=== PATIENT | female | born 1995 | race Two or more races ===

== ENCOUNTER 2021-08-14 04:20 | Inpatient (IN) | payer BC ==
[2021-08-14] MEDS ORDERED: Sodium Chloride 0.9% 2.5 ML Syringe FLUSH PRN ×2 (04:34→12:07)
[2021-08-14] MEDS ORDERED: Butorphanol 1 MG/ML SDV IVPUSH PRN (04:34)
[2021-08-14] MEDS ORDERED: Sodium Chloride 0.9% 20 ML SDV IV PRN (04:34)
[2021-08-14] MEDS ORDERED: Misoprostol 200 MCG Tab PO PRN (04:34)
[2021-08-14] MEDS ORDERED: Methylergonovine 0.2 MG/1 ML Amp IM PRN (04:34)
[2021-08-14] MEDS ORDERED: Carboprost Tromethamine 250 MCG/1 ML Amp IM PRN (04:34)
[2021-08-14] MEDS ORDERED: Sodium Chloride 0.9% 10 ML Syringe FLUSH PRN ×2 (04:34→12:07)
[2021-08-14] MEDS ORDERED: Nalbuphine 10 MG/1 ML Vial IVPUSH PRN ×2 (04:34→07:54)
[2021-08-14] MEDS ORDERED: Ondansetron 4 MG/2 ML SDV IVPUSH PRN ×3 (04:34→07:54)
[2021-08-14] MEDS ORDERED: Lidocaine 1% 50 ML MDV INJECT PRN (04:34)
[2021-08-14] MEDS ORDERED: Tranexamic Acid 1,000 MG in Sodium Chloride 0.9% 100 ML IV PRN (04:34)
[2021-08-14] MEDS ORDERED: Water For Irrigation,Sterile 1,000 ML Container IRR PRN (04:34)
[2021-08-14] MEDS ORDERED: Terbutaline 1 MG/ML SDV SUBCUT PRN (04:34)
[2021-08-14] MEDS ORDERED: Oxytocin/0.9 % Sodium Chloride 30 UNIT/500 ML BAG IV SCH ×2 (04:45)
[2021-08-14] MEDS ORDERED: Ampicillin 2 GM in Sodium Chloride 0.9% 100 ML IV ONE (05:00)
[2021-08-14] MEDS ORDERED: Ampicillin 2 GM Vial ONE (05:21)
[2021-08-14] MEDS ORDERED: Sodium Chloride 0.9% 100 ML ONE (05:21)
[2021-08-14] MEDS: Lactated Ringers 1,000 ML IV SCH ×4 (05:30→23:41)
[2021-08-14] MEDS ORDERED: Misoprostol 25 MCG (1/4 of 100 MCG) Tab VAG PRN (05:30)
--- NOTE | 2021-08-14 06:59 | HP ---
DATE OF : 1995 PRIMARY CARE PHYSICIAN: None PCP CHIEF COMPLAINT: Rupture of membranes. HISTORY: This is a 26-year-old female, she is G1, P0. She presents at 37 weeks gestation, spontaneous rupture of membranes at 1 a.m., having clear fluid. No contractions. Good movement. Category 1 heart tone upon admission. She has received her coronavirus disease vaccine. She has had care with Dr. Good She is known to be breech previously and this was discussed in the clinic. She has had urinary tract infections during the . History of depression, not currently taking medication. However, [place]. Her support system is her [id number]. There has been a marginal cord insertion identified and she has been followed with growth ultrasounds, which have been normal. She has been taking Macrobid for suppression of recurrent urinary tract infections. She is also at an increased risk for preeclampsia, although has not developed preeclampsia. She has been on aspirin for prophylaxis. She is blood type A positive, rubella immune. PAST MEDICAL HISTORY: Significant for depression and anxiety. PAST SURGICAL HISTORY: Cholecystectomy. ALLERGIES: Seasonal allergies that exacerbate mild asthma. SOCIAL HISTORY: She is to her , Vamsi, who is deployed in [facility]. She denies use of tobacco, alcohol, or street drugs. 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 She has received her flu immunization for this season as well as her coronavirus disease immunization. FAMILY HISTORY: She has a family history of trigeminal neuralgia in her mother. Breast cancer in her maternal grandmother. Diabetes in her paternal grandfather and paternal grandmother. 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 Pap smears have been normal. Last Pap 01/27/2021. Menstrual formula 16 x 30 x 5-6. She denies any history of sexually transmitted infections. REVIEW OF SYSTEMS: Negative for headache, visual changes, cough, shortness of breath, chest pain, dyspnea on exertion, palpitations, nausea, vomiting, diarrhea, rash, arthralgia, or other symptoms. PHYSICAL EXAMINATION: VITAL SIGNS: Blood pressure 126/70, pulse is 70, heart tones are 130, moderate variability with accelerations present. Contractions are none. GENERAL: She is alert and oriented, no acute distress. NECK: Supple without lymphadenopathy or thyromegaly. LUNGS: Clear bilaterally. CARDIOVASCULAR: Regular rate and rhythm without murmur. ABDOMEN: Soft, gravid, nontender. Fundus is not tender. No rebound. No guarding. EXTREMITIES: Trace edema. VAGINAL: Performed on initial assessment by nurse is closed and thick with no presenting part. Ultrasound confirms breech presentation. ASSESSMENT AND PLAN: 37 weeks intrauterine , marginal cord insertion, history of recurrent urinary tract infections, group B Strep positive, breech presentation, premature rupture of membranes. PLAN: Admit for after discussion of risks and benefits. I explained that I do not recommend attempting external cephalic version after rupture of membranes due to potential for cord accident. Additionally, fluid has decreased subjectively on ultrasound. Therefore, I recommend proceeding with a delivery. She does agree with this. Risks were discussed including bleeding; infection; injury to bowel, bladder, blood vessels, ureters, other organs; risk of thromboembolic event; risk of anesthesia. Understanding all these risks, she does desire to proceed. After discussion with the chip tuner regarding his recommendation for group B strep prophylaxis, he preferred that if the fetus is stable and the mother is stable, there is no emergent need for the , to wait for second dose of ampicillin, so that the baby is fully treated prior to delivery for prophylaxis for group B Strep. The patient is in agreement with that and is scheduled for approximately 10 a.m. with first dose completed at approximately 6 a.m. KRISTA CEJA /[id number] RA
[2021-08-14] MEDS ORDERED: Metoclopramide 10 MG/2 ML SDV IVPUSH PRN (07:54)
[2021-08-14] MEDS ORDERED: diphenhydrAMINE 50 MG/ML SDV IVPUSH PRN (07:54)
[2021-08-14] MEDS ORDERED: Morphine 2 MG/ML SYRINGE IVPUSH PRN (07:54)
[2021-08-14] MEDS ORDERED: Naloxone 0.4 MG/ML SDV IVPUSH PRN (07:54)
[2021-08-14] MEDS ORDERED: Acetaminophen/oxyCODONE 325-5 MG Tab PO PRN ×2 (07:54→12:07)
[2021-08-14] MEDS ORDERED: HYDROmorphone 1 MG/ML Syringe IVPUSH PRN (07:54)
[2021-08-14] MEDS ORDERED: fentaNYL 100 MCG/2 ML SDV IVPUSH PRN ×2 (07:54)
[2021-08-14] MEDS ORDERED: Albuterol 0.083% 2.5 MG/3 ML Neb Soln NEB PRN (07:54)
--- NOTE | 2021-08-14 08:01 | PCM.PREANE ---
Preanesthetic Assessment - Review of Systems General: No Symptoms Pulmonary: No Symptoms Cardiovascular: No Symptoms Gastrointestinal: No Symptoms Neurological: No Symptoms Other: Reports: None - Physical Assessment NPO Status Date: 08/14/21 NPO Status Time: 00:00 Height: 5 ft 2 in Weight: 200 lb ASA Class: 2 Mental Status: Alert & Oriented x3 Airway Class: Mallampati = 2 Dentition: Reports: Normal Dentition Thyro-Mental Finger Breadths: 3 Mouth Opening Finger Breadths: 3 ROM/Head Extension: Full Lungs: Clear to Auscultation, Normal Respiratory Effort Cardiovascular: Regular Rate, Regular Rhythm - Lab Values: Laboratory Last Values WBC 11.44 K/uL (4.0-11.0) H 08/14/21 07:17 RBC 4.64 M/uL (4.30-5.90) 08/14/21 07:17 Hgb 12.9 g/dL (12.0-16.0) 08/14/21 07:17 Hct 38.7 % (36.0-46.0) 08/14/21 07:17 MCV 83.4 fL (80.0-98.0) 08/14/21 07:17 MCH 27.8 pg (27.0-32.0) 08/14/21 07:17 MCHC 33.3 g/dL (31.0-37.0) 08/14/21 07:17 RDW Std Deviation 44.2 fl (28.0-62.0) 08/14/21 07:17 RDW Coeff of Ton 15 % (11.0-15.0) 08/14/21 07:17 Plt Count 254 K/uL (150-400) 08/14/21 07:17 MPV 9.90 fL (7.40-12.00) 08/14/21 07:17 Nucleated RBC % 0.0 /100WBC 08/14/21 07:17 Nucleated RBCs # 0 K/uL 08/14/21 07:17 Membrane Rupture POSITIVE 08/14/21 03:52 SARS-CoV-2 RNA (DIRK) NEGATIVE (NEGATIVE) 08/14/21 05:15 Blood Type A POSITIVE 08/14/21 05:15 Antibody Screen NEGATIVE 08/14/21 05:15 - Allergies Allergies/Adverse Reactions: Allergies Allergy/AdvReac Type Severity Reaction Status Date / Time No Known Allergies Allergy Verified 08/14/21 04:24 - Acknowledgements Anesthesia Type Planned: Spinal Pt an Appropriate Candidate for the Planned Anesthesia: Yes Alternatives and Risks of Anesthesia Discussed w Pt/Guardian: Yes Pt/Guardian Understands and Agrees with Anesthesia Plan: Yes PreAnesthesia Questionnaire HEENT History: Reports: Other (See Below) Other HEENT History: seasonal allergies Cardiovascular History: Reports: None Respiratory History: Reports: Asthma Gastrointestinal History: Reports: None Genitourinary History: Reports: UTI, Recurrent, Other (See Below) Other Genitourinary History: was on Macrobid prophylactic CRAP SHOOTER History: Reports: Musculoskeletal History: Reports: None Neurological History: Reports: None Psychiatric History: Reports: Anxiety, Depression Hematologic History: Reports: None Immunologic History: Reports: None Oncologic (Cancer) History: Reports: None Dermatologic History: Reports: None - Past Surgical History Head Surgeries/Procedures: Reports: None Respiratory Surgical History: Reports: None Musculoskeletal Surgical History: Reports: None - HOME MEDS Home Medications: Home Meds Cetirizine [ZyrTEC] 1 tab PO DAILY 04/28/21 [History] Pnv No.95/Ferrous Fum/Folic AC [ Tablet] 1 tab PO BEDTIME 04/28/21 [History] nitrofurantoin macrocrystaL [Nitrofurantoin] 1 cap PO BID 04/28/21 [History] - CURRENT (IN HOUSE) MEDS Current Meds: Current Medications Albuterol (Albuterol 0.083% 2.5 Mg/3 Ml Neb Soln) 2.5 mg NEB ONETIME PRN PRN Reason: Wheezing Butorphanol Tartrate (Butorphanol 1 Mg/Ml Sdv) 1 mg IVPUSH Q1H PRN PRN Reason: Pain (severe 7-10) Carboprost Tromethamine (Carboprost Tromethamine 250 Mcg/1 Ml Amp) 250 mcg IM ASDIRECTED PRN PRN Reason: Post Hemorrhage Diphenhydramine HCl (Diphenhydramine 50 Mg/Ml Sdv) 12.5 mg IVPUSH Q2H PRN PRN Reason: Itching Droperidol (Droperidol 5 Mg/2 Ml Sdv) 0.625 mg IVPUSH ONETIME PRN PRN Reason: Nausea/Vomiting Fentanyl (Fentanyl 100 Mcg/2 Ml Sdv) 50 mcg IVPUSH Q5M PRN PRN Reason: Pain (mild 1-3) Fentanyl (Fentanyl 100 Mcg/2 Ml Sdv) 50 mcg IVPUSH Q15M PRN PRN Reason: Pain (severe 7-10) Hydromorphone HCl (Hydromorphone 1 Mg/Ml Syringe) 1 mg IVPUSH Q10M PRN PRN Reason: Pain (moderate 4-6) Lactated Ringer's (Ringers, Lactated) 1,000 mls @ 150 mls/hr IV ASDIRECTED [facility] Last Admin: 08/14/21 05:30 Dose: 150 mls/hr Documented by: Oxytocin/Sodium Chloride (Oxytocin 30 Unit In Ns 0.9% 500 Ml Premix) 30 unit in 500 mls @ 999 mls/hr IV TITRATE [facility] Tranexamic Acid 1,000 mg/ (Sodium Chloride) 110 mls @ 660 mls/hr IV ONETIME PRN PRN Reason: Bleeding Oxytocin/Sodium Chloride (Oxytocin 30 Unit In Ns 0.9% 500 Ml Premix) 30 unit in 500 mls @ 2 mls/hr IV TITRATE [facility]; Protocol Ampicillin Sodium 1 gm/ Sodium (Chloride) 50 mls @ 100 mls/hr IV Q4H [facility] Lidocaine HCl (Lidocaine 1% 50 Ml Mdv) 50 ml INJECT ONETIME PRN PRN Reason: Laceration repair Methylergonovine Maleate (Methylergonovine 0.2 Mg/1 Ml Amp) 0.2 mg IM ASDIRECTED PRN PRN Reason: Post Hemorrhage Metoclopramide HCl (Metoclopramide 10 Mg/2 Ml Sdv) 10 mg IVPUSH ONETIME PRN PRN Reason: Nausea/Vomiting Misoprostol (Misoprostol 200 Mcg Tab) 200 mcg PO ONETIME PRN PRN Reason: Post Hemorrhage Misoprostol (Misoprostol 25 Mcg (1/4 Of 100 Mcg) Tab) 25 mcg VAG Q4H PRN PRN Reason: Cervical Ripening Morphine Sulfate (Morphine 4 Mg/Ml Vial) 2 mg IVPUSH Q10M PRN PRN Reason: Pain (severe 7-10) Nalbuphine HCl (Nalbuphine 10 Mg/1 Ml Vial) 10 mg IVPUSH Q1H PRN PRN Reason: Pain (severe 7-10) Nalbuphine HCl (Nalbuphine 10 Mg/1 Ml Vial) 5 mg IVPUSH Q30M PRN PRN Reason: Itching Naloxone HCl (Naloxone 0.4 Mg/Ml Sdv) 0.1 mg IVPUSH ASDIRECTED PRN PRN Reason: Respiratory Depression Ondansetron HCl (Ondansetron 4 Mg/2 Ml Sdv) 4 mg IVPUSH Q6H PRN PRN Reason: Nausea/Vomiting Ondansetron HCl (Ondansetron 4 Mg/2 Ml Sdv) 4 mg IVPUSH ONETIME PRN PRN Reason: Nausea/Vomiting Ondansetron HCl (Ondansetron 4 Mg/2 Ml Sdv) 4 mg IVPUSH Q6H PRN PRN Reason: Nausea Oxycodone/Acetaminophen (Acetaminophen/Oxycodone 325-5 Mg Tab) 2 tab PO Q6H PRN PRN Reason: Pain (moderate 4-6) Sodium Chloride (Sodium Chloride 0.9% 10 Ml Syringe) 10 ml FLUSH ASDIRECTED PRN PRN Reason: Keep Vein Open Sodium Chloride (Sodium Chloride 0.9% 2.5 Ml Syringe) 2.5 ml FLUSH ASDIRECTED PRN PRN Reason: Keep Vein Open Sodium Chloride (Sodium Chloride 0.9% 20 Ml Sdv) 10 ml IV ASDIRECTED PRN PRN Reason: IV Use Sterile Water (Water For Irrigation,Sterile 1,000 Ml Container) 1,000 ml IRR ASDIRECTED PRN PRN Reason: delivery Terbutaline Sulfate (Terbutaline 1 Mg/Ml Sdv) 0.25 mg SUBCUT ASDIRECTED PRN PRN Reason: Tacysystole Discontinued Medications Ampicillin Sodium (Ampicillin 2 Gm Vial) Confirm Administered Dose 2 gm .ROUTE .STK-MED ONE Stop: 08/14/21 05:22 Last Admin: 08/14/21 05:32 Dose: 2 gm Documented by: Ampicillin Sodium 2 gm/ Sodium (Chloride) 100 mls @ 200 mls/hr IV ONETIME ONE Stop: 08/14/21 05:29 Sodium Chloride (Normal Saline Advbag) Confirm Administered Dose 100 mls @ as directed .ROUTE .STK-MED ONE Stop: 08/14/21 05:22 Last Admin: 08/14/21 05:32 Dose: 200 mls/hr Documented by:
[2021-08-14] MEDS ORDERED: Ropivacaine 0.5% 5 MG/ML 30 ML SDV ONE ×2 (08:51→08:54)
[2021-08-14] MEDS ORDERED: Morphine PF 10 MG/10 ML SDV ONE (08:54)
[2021-08-14] MEDS ORDERED: fentaNYL 100 MCG/2 ML SDV ONE (08:54)
[2021-08-14] MEDS ORDERED: Oxytocin 10 Units/1 ML SDV ONE (08:54)
[2021-08-14] MEDS ORDERED: Ondansetron 4 MG/2 ML SDV ONE (08:54)
[2021-08-14] MEDS ORDERED: Dexamethasone 4 MG/ML 5 ML MDV ONE (08:54)
[2021-08-14] MEDS ORDERED: Ampicillin 1 GM in Sodium Chloride 0.9% 50 ML IV SCH (09:00)
[2021-08-14] MEDS ORDERED: ceFAZolin 1 GM Vial ONE ×2 (10:18)
--- NOTE | 2021-08-14 11:33 | PCM.POSTAN ---
POST ANESTHESIA ASSESSMENT - MENTAL STATUS Mental Status: Alert, Oriented - RESPIRATORY Respiratory Status: Respiratory Rate WNL, Airway Patent, O2 Saturation Stable - CARDIOVASCULAR CV Status: Pulse Rate WNL, Blood Pressure Stable - GASTROINTESTINAL GI Status: No Symptoms - POST OP HYDRATION Hydration Status: Adequate & Stable
--- NOTE | 2021-08-14 11:34 | PCM48HPAN ---
Post Anesthesia Note - EVALUATION WITHIN 48HRS OF ANESTHETIC Vital Signs in Normal Range: Yes Patient Participated in Evaluation: Yes Respiratory Function Stable: Yes Airway Patent: Yes Cardiovascular Function Stable: Yes Hydration Status Stable: Yes Pain Control Satisfactory: Yes Nausea and Vomiting Control Satisfactory: Yes Mental Status Recovered: Yes
--- NOTE | 2021-08-14 11:37 | PCM.SN.2 ---
- Free Text/Narrative Note: Anesthesia Start: 1128 Anesthesia Stop: 1130 After obtaining informed consent, performing a block time out and under sterile conditions, UIS was used to place BILATERAL TAPS block for post op analgesia. Using a 6 inch, 21g stimuplex needle, 25 cc per side of 0.5% Naropin was injected. No complications. Patient tolerated the procedure well. Deyvi Powell MD
[2021-08-14] MEDS ORDERED: Misoprostol 200 MCG Tab RECTAL PRN (12:07)
[2021-08-14] MEDS ORDERED: Lanolin 100% Cream 7 GM Tube TOP PRN (12:07)
[2021-08-14] MEDS ORDERED: Bisacodyl 10 MG Supp RECTAL PRN (12:07)
--- NOTE | 2021-08-14 12:15 | PCM.OPNOTE ---
- General Post-Op/Procedure Note Date of Surgery/Procedure: 08/14/21 Operative Procedure(s): Primary low transverse section Findings: male infant in neli breech presentation, AGPAR 8 and 9. Wt 2650g Pre Op Diagnosis: 1. premature rupture of membranes. 2. breech presentation. 3. intrauterine growth restriction Post-Op Diagnosis: 1. premature rupture of membranes. 2. breech presentation. 3. intrauterine growth restriction Anesthesia Technique: Spinal Primary Surgeon: Collins Good Anesthesia Provider: Deyvi Powell Pathology: Placenta Fluid Replacement, Intraop: 1,500 Output, Urine Amount: 100 EBL in mLs: 400 Condition: Good Free Text/Narrative:: Intake & Output 08/13/21 08/14/21 08/14/21 22:59 06:59 14:59 Intake Total 1100 Balance 1100 Routine post care.
[2021-08-14] MEDS: Ketorolac 30 MG/ML SDV IVPUSH SCH ×2 (13:54→19:40)
[2021-08-14] MEDS: Docusate Sodium 100 MG Cap PO SCH (19:59)
--- NOTE | 2021-08-15 01:32 | OR ---
SURGEON: Collins Good MD DATE OF PROCEDURE: 08/14/2021 INDICATION FOR PROCEDURE: A 26-year-old, G1, P0, at 37 weeks and 0 days, presenting with premature rupture of membranes. The patient presented after noticing a large gush of clear fluid around 1:00 a.m. last night. She denies having contractions or bleeding. After arriving to Labor and Delivery, she was confirmed to be AmnioSure positive. Her cervix was closed. She is GBS positive, and was given ampicillin for GBS prophylaxis. The baby was in breech presentation. After discussion with the internet site designer regarding treatment for group B strep, was advised to give her two doses of ampicillin prior to proceeding with section, which she received. The was complicated by a marginal cord insertion. She was found to have intrauterine growth restriction on ultrasound two days ago with an abdominal circumference of 8th percentile. She had normal umbilical artery Dopplers. PREOPERATIVE DIAGNOSES: 1. Lorenzo intrauterine at 37 weeks and 0 days. 2. Premature rupture of membranes. 3. Group B Streptococcus positive. 4. Breech presentation. 5. Marginal cord insertion. 6. Intrauterine growth restriction. POSTOPERATIVE DIAGNOSES: 1. Lorenzo intrauterine at 37 weeks and 0 days. 2. Premature rupture of membranes. 3. Group B Streptococcus positive. 4. Breech presentation. 5. Marginal cord insertion. 6. Intrauterine growth restriction. PROCEDURE PERFORMED: Primary low-transverse section. ANESTHESIA: General anesthesia. ANESTHESIOLOGIST: Dr. Deyvi Powell. FINDINGS: Viable male infant, scores of 8 and 9. weight of 2650 g. The fetus was in complete breech presentation. ESTIMATED BLOOD LOSS: 400 mL. DESCRIPTION OF PROCEDURE: The procedure was discussed with the patient, the risks including bleeding, infection, DVTs, and injury to surrounding organs including bladder, bowel, ureter; the patient expressed understanding. Consent signed. The patient was brought to the operating room. She previously received ampicillin for GBS prophylaxis and an additional 2 g of Ancef IV. SCDs were placed. Spinal anesthesia was placed and a Claudio catheter was inserted. The abdomen was prepped with chlorhexidine in a sterile fashion and draped and tested for anesthesia. The spinal was adequate. A Pfannenstiel incision was made with a scalpel and dissected down to fascia. The fascia was cleared of subcutaneous tissue. The fascia was incised in the midline with scalpel and extended laterally with curved Lamb scissors. Zohaib clamps were placed on the superior fascial edge. The rectus muscles were by blunt dissection and using Lamb scissors. The same process was repeated for inferior fascial edge. The peritoneum was identified, cut with Metzenbaum scissors, and extended bluntly. The Keegan O retractor was placed in the peritoneal cavity. The bladder was noted to be away from the lower uterine segment. The uterus was incised at the lower uterine segment transversely using the scalpel and extended bluntly. Clear amniotic fluid was noted. The 's right leg was noted at the hysterotomy. The infant's hips were rotated anteriorly, and the hips and both legs were delivered through the hysterotomy. The infant's right arm was then delivered after rotating the shoulder anteriorly, and then the was rotated so that the other shoulder delivered. The was then elevated and the head delivered by flexing the chin. The umbilical cord was clamped and cut after 60 seconds and no longer pulsating. The baby was pink, moving all extremities, and crying immediately after delivery. The baby was brought over to the awaiting nursery staff. Cord gases were obtained. Placenta was removed with gentle traction and uterine massage. The uterine cavity was cleaned with a lap to remove all remaining membranes. Allis clamps were used to grasp the angles and lower edges of the incision. The uterine incision was closed in 2 layers, the first layer was running non-locking fashion using 0 Monocryl, and the second layer with vertical imbricated fashion. The uterus was firm, and the incision was hemostatic. Paracolic gutters were cleared of any clots. The incision was irrigated and hemostasis again confirmed. The peritoneum was brought together to the midline with hemostats and closed with 2-0 Vicryl in running fashion. Rectus muscles were reapproximated with 2-0 Vicryl with mattress stitches. The rectus muscle was carefully examined and found to be hemostatic. The fascia was closed using a 0 Vicryl suture in a running fashion. The subcutaneous tissue was irrigated and bleeding areas cauterized. The subcutaneous layer was brought together with 2-0 plain suture. The skin was closed in a subcuticular fashion using 3-0 Monocryl on a Baldomero needle. A Telfa ABD dressing was placed over the over the incision. The patient was stable and transferred to the recovery room. Postop instructions were reviewed with the patient. XANDER CEJA /[id number]
[2021-08-15] MEDS: Ketorolac 30 MG/ML SDV IVPUSH SCH ×3 (01:34→14:45)
[2021-08-15] MEDS: Docusate Sodium 100 MG Cap PO SCH ×2 (08:12→22:15)
--- NOTE | 2021-08-15 09:12 | PCM.PNPP ---
- General Info Date of Service: 08/15/21 Subjective Update: Patient doing well. Claudio removed this morning and has voided. Pain well controlled. Bottle feeding. Functional Status: Reports: Pain Controlled, Tolerating Diet, Ambulating, Urinating - Review of Systems General: Reports: No Symptoms HEENT: Reports: No Symptoms Pulmonary: Reports: No Symptoms Cardiovascular: Reports: No Symptoms Gastrointestinal: Reports: No Symptoms Genitourinary: Reports: No Symptoms Musculoskeletal: Reports: No Symptoms Skin: Reports: No Symptoms Neurological: Reports: No Symptoms Psychiatric: Reports: No Symptoms - Patient Data Vital Signs - Most Recent: Last Vital Signs Temp 36.4 C 08/15/21 08:00 Pulse 81 08/15/21 08:50 Resp 16 08/15/21 08:50 BP 103/49 L 08/15/21 08:00 Pulse Ox 99 08/15/21 08:50 Weight - Most Recent: 90.718 kg I&O - Last 24 Hours: Intake & Output 08/14/21 08/15/21 08/15/21 22:59 06:59 14:59 Intake Total 2375 Output Total 900 875 250 Balance -900 1500 -250 Lab Results - Last 24 Hours: Laboratory Results - last 24 hr 08/15/21 Range/Units 05:40 Hgb 11.0 L (12.0-16.0) g/dL Hct 33.0 L (36.0-46.0) % Med Orders - Current: Current Medications Albuterol (Albuterol 0.083% 2.5 Mg/3 Ml Neb Soln) 2.5 mg NEB ONETIME PRN PRN Reason: Wheezing Bisacodyl (Bisacodyl 10 Mg Supp) 10 mg RECTAL ONETIME PRN PRN Reason: Constipation Diphenhydramine HCl (Diphenhydramine 50 Mg/Ml Sdv) 12.5 mg IVPUSH Q2H PRN PRN Reason: Itching Docusate Sodium (Docusate Sodium 100 Mg Cap) 100 mg PO BID [facility] Last Admin: 08/15/21 08:12 Dose: 100 mg Documented by: Emollient Ointment (Lanolin 100% Cream 7 Gm Tube) 0 gm TOP ASDIRECTED PRN PRN Reason: Sore Nipples Fentanyl (Fentanyl 100 Mcg/2 Ml Sdv) 50 mcg IVPUSH Q5M PRN PRN Reason: Pain (mild 1-3) Fentanyl (Fentanyl 100 Mcg/2 Ml Sdv) 50 mcg IVPUSH Q15M PRN PRN Reason: Pain (severe 7-10) Hydromorphone HCl (Hydromorphone 1 Mg/Ml Syringe) 1 mg IVPUSH Q10M PRN PRN Reason: Pain (moderate 4-6) Lactated Ringer's (Ringers, Lactated) 1,000 mls @ 125 mls/hr IV ASDIRECTED [facility] Last Admin: 08/14/21 23:41 Dose: 125 mls/hr Documented by: Ibuprofen (Ibuprofen 800 Mg Tab) 800 mg PO Q8H PRN PRN Reason: Cramping Ketorolac Tromethamine (Ketorolac 30 Mg/Ml Sdv) 30 mg IVPUSH Q6H [facility] Stop: 08/15/21 12:16 Last Admin: 08/15/21 08:10 Dose: 30 mg Documented by: Metoclopramide HCl (Metoclopramide 10 Mg/2 Ml Sdv) 10 mg IVPUSH ONETIME PRN PRN Reason: Nausea/Vomiting Misoprostol (Misoprostol 200 Mcg Tab) 1,000 mcg RECTAL ONETIME PRN PRN Reason: excessive bleeding Morphine Sulfate (Morphine 2 Mg/Ml Syringe) 2 mg IVPUSH Q10M PRN PRN Reason: Pain (severe 7-10) Ondansetron HCl (Ondansetron 4 Mg/2 Ml Sdv) 4 mg IVPUSH ONETIME PRN PRN Reason: Nausea/Vomiting Ondansetron HCl (Ondansetron 4 Mg/2 Ml Sdv) 4 mg IVPUSH Q6H PRN PRN Reason: Nausea Last Admin: 08/14/21 16:16 Dose: 4 mg Documented by: Oxycodone/Acetaminophen (Acetaminophen/Oxycodone 325-5 Mg Tab) 2 tab PO Q6H PRN PRN Reason: Pain (moderate 4-6) Oxycodone/Acetaminophen (Acetaminophen/Oxycodone 325-5 Mg Tab) 1 tab PO Q4H PRN PRN Reason: Pain (severe 7-10) Sodium Chloride (Sodium Chloride 0.9% 10 Ml Syringe) 10 ml FLUSH ASDIRECTED PRN PRN Reason: Keep Vein Open Sodium Chloride (Sodium Chloride 0.9% 2.5 Ml Syringe) 2.5 ml FLUSH ASDIRECTED PRN PRN Reason: Keep Vein Open Sodium Chloride (Sodium Chloride 0.9% 20 Ml Sdv) 10 ml IV ASDIRECTED PRN PRN Reason: IV Use Sodium Chloride (Sodium Chloride 0.9% 10 Ml Syringe) 10 ml FLUSH ASDIRECTED PRN PRN Reason: Keep Vein Open Sodium Chloride (Sodium Chloride 0.9% 2.5 Ml Syringe) 2.5 ml FLUSH ASDIRECTED PRN PRN Reason: Keep Vein Open Discontinued Medications Ampicillin Sodium (Ampicillin 2 Gm Vial) Confirm Administered Dose 2 gm .ROUTE .STK-MED ONE Stop: 08/14/21 05:22 Last Admin: 08/14/21 05:32 Dose: 2 gm Documented by: Butorphanol Tartrate (Butorphanol 1 Mg/Ml Sdv) 1 mg IVPUSH Q1H PRN PRN Reason: Pain (severe 7-10) Carboprost Tromethamine (Carboprost Tromethamine 250 Mcg/1 Ml Amp) 250 mcg IM ASDIRECTED PRN PRN Reason: Post Hemorrhage Cefazolin Sodium (Cefazolin 1 Gm Vial) Confirm Administered Dose 1 gm .ROUTE .STK-MED ONE Stop: 08/14/21 10:19 Cefazolin Sodium (Cefazolin 1 Gm Vial) Confirm Administered Dose 1 gm .ROUTE .STK-MED ONE Stop: 08/14/21 10:19 Dexamethasone (Dexamethasone 4 Mg/Ml 5 Ml Mdv) Confirm Administered Dose 20 mg .ROUTE .STK-MED ONE Stop: 08/14/21 08:55 Droperidol (Droperidol 5 Mg/2 Ml Sdv) 0.625 mg IVPUSH ONETIME PRN PRN Reason: Nausea/Vomiting Fentanyl (Fentanyl 100 Mcg/2 Ml Sdv) Confirm Administered Dose 100 mcg .ROUTE .STK-MED ONE Stop: 08/14/21 08:55 Lactated Ringer's (Ringers, Lactated) 1,000 mls @ 150 mls/hr IV ASDIRECTED [facility] Last Admin: 08/14/21 08:49 Dose: 150 mls/hr Documented by: Oxytocin/Sodium Chloride (Oxytocin 30 Unit In Ns 0.9% 500 Ml Premix) 30 unit in 500 mls @ 999 mls/hr IV TITRATE [facility] Tranexamic Acid 1,000 mg/ (Sodium Chloride) 110 mls @ 660 mls/hr IV ONETIME PRN PRN Reason: Bleeding Oxytocin/Sodium Chloride (Oxytocin 30 Unit In Ns 0.9% 500 Ml Premix) 30 unit in 500 mls @ 2 mls/hr IV TITRATE [facility]; Protocol Ampicillin Sodium 2 gm/ Sodium (Chloride) 100 mls @ 200 mls/hr IV ONETIME ONE Stop: 08/14/21 05:29 Ampicillin Sodium 1 gm/ Sodium (Chloride) 50 mls @ 100 mls/hr IV Q4H [facility] Last Admin: 08/14/21 09:23 Dose: 100 mls/hr Documented by: Sodium Chloride (Normal Saline Advbag) Confirm Administered Dose 100 mls @ as directed .ROUTE .STK-MED ONE Stop: 08/14/21 05:22 Last Admin: 08/14/21 05:32 Dose: 200 mls/hr Documented by: Lidocaine HCl (Lidocaine 1% 50 Ml Mdv) 50 ml INJECT ONETIME PRN PRN Reason: Laceration repair Methylergonovine Maleate (Methylergonovine 0.2 Mg/1 Ml Amp) 0.2 mg IM ASDIRECTED PRN PRN Reason: Post Hemorrhage Miscellaneous Medication (Phenylephrine Hcl In 0.9% Nacl 1 Mg/10 Ml Syringe) Confirm Administered Dose 1 mg .ROUTE .STK-MED ONE Stop: 08/14/21 09:05 Miscellaneous Medication (Phenylephrine Hcl In 0.9% Nacl 1 Mg/10 Ml Syringe) Confirm Administered Dose 1 mg .ROUTE .STK-MED ONE Stop: 08/14/21 10:50 Misoprostol (Misoprostol 200 Mcg Tab) 200 mcg PO ONETIME PRN PRN Reason: Post Hemorrhage Misoprostol (Misoprostol 25 Mcg (1/4 Of 100 Mcg) Tab) 25 mcg VAG Q4H PRN PRN Reason: Cervical Ripening Morphine Sulfate (Morphine Pf 10 Mg/10 Ml Sdv) Confirm Administered Dose 10 mg .ROUTE .STK-MED ONE Stop: 08/14/21 08:55 Nalbuphine HCl (Nalbuphine 10 Mg/1 Ml Vial) 10 mg IVPUSH Q1H PRN PRN Reason: Pain (severe 7-10) Nalbuphine HCl (Nalbuphine 10 Mg/1 Ml Vial) 5 mg IVPUSH Q30M PRN PRN Reason: Itching Naloxone HCl (Naloxone 0.4 Mg/Ml Sdv) 0.1 mg IVPUSH ASDIRECTED PRN PRN Reason: Respiratory Depression Ondansetron HCl (Ondansetron 4 Mg/2 Ml Sdv) 4 mg IVPUSH Q6H PRN PRN Reason: Nausea/Vomiting Ondansetron HCl (Ondansetron 4 Mg/2 Ml Sdv) Confirm Administered Dose 4 mg .ROUTE .STK-MED ONE Stop: 08/14/21 08:55 Oxytocin (Oxytocin 10 Units/1 Ml Sdv) Confirm Administered Dose 30 unit .ROUTE .STK-MED ONE Stop: 08/14/21 08:55 Ropivacaine (Ropivacaine 0.5% 5 Mg/Ml 30 Ml Sdv) Confirm Administered Dose 30 ml .ROUTE .STK-MED ONE Stop: 08/14/21 08:52 Ropivacaine (Ropivacaine 0.5% 5 Mg/Ml 30 Ml Sdv) Confirm Administered Dose 30 ml .ROUTE .STK-MED ONE Stop: 08/14/21 08:55 Sterile Water (Water For Irrigation,Sterile 1,000 Ml Container) 1,000 ml IRR ASDIRECTED PRN PRN Reason: delivery Terbutaline Sulfate (Terbutaline 1 Mg/Ml Sdv) 0.25 mg SUBCUT ASDIRECTED PRN PRN Reason: Tacysystole - Interaction Infant Disposition, : in Room with Family Feeding: Bottle Fed Support Person: - Recovery Exam Fundal Tone: Firm Fundal Level: 1 Fingerbreadths Below Umbilicus Fundal Placement: Midline Lochia Amount: Scant Lochia Color: Rubra/Red Bladder Status: Voiding Urinary Elimination: Voided - Exam General: Alert, Oriented Neck: Supple Lungs: Normal Respiratory Effort GI/Abdominal Exam: Soft, Non-Tender, No Distention Extremities: Non-Tender, No Pedal Edema Skin: Warm Wound/Incisions: Dressing Dry and Intact Neurological: No New Focal Deficit Psy/Mental Status: Alert, Normal Affect, Normal Mood - Problem List & Annotations (1) Delivery by section for breech presentation SNOMED Code(s): 515928735 Code(s): O32.1XX0 - MATERNAL CARE FOR BREECH PRESENTATION, UNSP Status: Acute Current Visit: Yes - Problem List Review Problem List Initiated/Reviewed/Updated: Yes - Assessment Assessment:: 26yo s/p 1LTCS for breech presentation and rupture of membranes at 37w0d, POD#1 - Plan Plan:: Continue routine care. Encourage ambulation today. Rx sent to patient's pharmacy (closed tomorrow). Rh positive, GBS negative. Plan discharge home on POD#2.
[2021-08-15] MEDS ORDERED: Ketorolac 30 MG/ML SDV ONE (14:41)
[2021-08-15] MEDS ORDERED: Ibuprofen 800 MG Tab PO PRN (18:15)
--- NOTE | 2021-08-16 07:21 | PCM.PNPP ---
- General Info Date of Service: 08/16/21 Subjective Update: Patient doing well. Pain well controlled. Bottle feeding. Functional Status: Reports: Pain Controlled, Tolerating Diet, Ambulating, Urinating - Review of Systems General: Reports: No Symptoms HEENT: Reports: No Symptoms Pulmonary: Reports: No Symptoms Cardiovascular: Reports: No Symptoms Gastrointestinal: Reports: No Symptoms Genitourinary: Reports: No Symptoms Musculoskeletal: Reports: No Symptoms Skin: Reports: No Symptoms Neurological: Reports: No Symptoms Psychiatric: Reports: No Symptoms - Patient Data Vital Signs - Most Recent: Last Vital Signs Temp 36.9 C 08/16/21 04:10 Pulse 83 08/16/21 04:10 Resp 18 08/16/21 04:10 BP 126/67 08/16/21 04:10 Pulse Ox 95 08/16/21 04:10 Weight - Most Recent: 90.718 kg Med Orders - Current: Current Medications Albuterol (Albuterol 0.083% 2.5 Mg/3 Ml Neb Soln) 2.5 mg NEB ONETIME PRN PRN Reason: Wheezing Bisacodyl (Bisacodyl 10 Mg Supp) 10 mg RECTAL ONETIME PRN PRN Reason: Constipation Diphenhydramine HCl (Diphenhydramine 50 Mg/Ml Sdv) 12.5 mg IVPUSH Q2H PRN PRN Reason: Itching Docusate Sodium (Docusate Sodium 100 Mg Cap) 100 mg PO BID [facility] Last Admin: 08/15/21 22:15 Dose: 100 mg Documented by: Emollient Ointment (Lanolin 100% Cream 7 Gm Tube) 0 gm TOP ASDIRECTED PRN PRN Reason: Sore Nipples Fentanyl (Fentanyl 100 Mcg/2 Ml Sdv) 50 mcg IVPUSH Q5M PRN PRN Reason: Pain (mild 1-3) Fentanyl (Fentanyl 100 Mcg/2 Ml Sdv) 50 mcg IVPUSH Q15M PRN PRN Reason: Pain (severe 7-10) Hydromorphone HCl (Hydromorphone 1 Mg/Ml Syringe) 1 mg IVPUSH Q10M PRN PRN Reason: Pain (moderate 4-6) Lactated Ringer's (Ringers, Lactated) 1,000 mls @ 125 mls/hr IV ASDIRECTED [facility] Last Admin: 08/14/21 23:41 Dose: 125 mls/hr Documented by: Ibuprofen (Ibuprofen 800 Mg Tab) 800 mg PO Q8H PRN PRN Reason: Cramping Last Admin: 08/16/21 04:06 Dose: 800 mg Documented by: Metoclopramide HCl (Metoclopramide 10 Mg/2 Ml Sdv) 10 mg IVPUSH ONETIME PRN PRN Reason: Nausea/Vomiting Misoprostol (Misoprostol 200 Mcg Tab) 1,000 mcg RECTAL ONETIME PRN PRN Reason: excessive bleeding Morphine Sulfate (Morphine 2 Mg/Ml Syringe) 2 mg IVPUSH Q10M PRN PRN Reason: Pain (severe 7-10) Ondansetron HCl (Ondansetron 4 Mg/2 Ml Sdv) 4 mg IVPUSH ONETIME PRN PRN Reason: Nausea/Vomiting Ondansetron HCl (Ondansetron 4 Mg/2 Ml Sdv) 4 mg IVPUSH Q6H PRN PRN Reason: Nausea Last Admin: 08/14/21 16:16 Dose: 4 mg Documented by: Oxycodone/Acetaminophen (Acetaminophen/Oxycodone 325-5 Mg Tab) 2 tab PO Q6H PRN PRN Reason: Pain (moderate 4-6) Oxycodone/Acetaminophen (Acetaminophen/Oxycodone 325-5 Mg Tab) 1 tab PO Q4H PRN PRN Reason: Pain (severe 7-10) Sodium Chloride (Sodium Chloride 0.9% 10 Ml Syringe) 10 ml FLUSH ASDIRECTED PRN PRN Reason: Keep Vein Open Sodium Chloride (Sodium Chloride 0.9% 2.5 Ml Syringe) 2.5 ml FLUSH ASDIRECTED PRN PRN Reason: Keep Vein Open Sodium Chloride (Sodium Chloride 0.9% 20 Ml Sdv) 10 ml IV ASDIRECTED PRN PRN Reason: IV Use Sodium Chloride (Sodium Chloride 0.9% 10 Ml Syringe) 10 ml FLUSH ASDIRECTED PRN PRN Reason: Keep Vein Open Sodium Chloride (Sodium Chloride 0.9% 2.5 Ml Syringe) 2.5 ml FLUSH ASDIRECTED PRN PRN Reason: Keep Vein Open Discontinued Medications Ampicillin Sodium (Ampicillin 2 Gm Vial) Confirm Administered Dose 2 gm .ROUTE .STK-MED ONE Stop: 08/14/21 05:22 Last Admin: 08/14/21 05:32 Dose: 2 gm Documented by: Butorphanol Tartrate (Butorphanol 1 Mg/Ml Sdv) 1 mg IVPUSH Q1H PRN PRN Reason: Pain (severe 7-10) Carboprost Tromethamine (Carboprost Tromethamine 250 Mcg/1 Ml Amp) 250 mcg IM ASDIRECTED PRN PRN Reason: Post Hemorrhage Cefazolin Sodium (Cefazolin 1 Gm Vial) Confirm Administered Dose 1 gm .ROUTE .STK-MED ONE Stop: 08/14/21 10:19 Cefazolin Sodium (Cefazolin 1 Gm Vial) Confirm Administered Dose 1 gm .ROUTE .STK-MED ONE Stop: 08/14/21 10:19 Dexamethasone (Dexamethasone 4 Mg/Ml 5 Ml Mdv) Confirm Administered Dose 20 mg .ROUTE .STK-MED ONE Stop: 08/14/21 08:55 Droperidol (Droperidol 5 Mg/2 Ml Sdv) 0.625 mg IVPUSH ONETIME PRN PRN Reason: Nausea/Vomiting Fentanyl (Fentanyl 100 Mcg/2 Ml Sdv) Confirm Administered Dose 100 mcg .ROUTE .STK-MED ONE Stop: 08/14/21 08:55 Lactated Ringer's (Ringers, Lactated) 1,000 mls @ 150 mls/hr IV ASDIRECTED [facility] Last Admin: 08/14/21 08:49 Dose: 150 mls/hr Documented by: Oxytocin/Sodium Chloride (Oxytocin 30 Unit In Ns 0.9% 500 Ml Premix) 30 unit in 500 mls @ 999 mls/hr IV TITRATE [facility] Tranexamic Acid 1,000 mg/ (Sodium Chloride) 110 mls @ 660 mls/hr IV ONETIME PRN PRN Reason: Bleeding Oxytocin/Sodium Chloride (Oxytocin 30 Unit In Ns 0.9% 500 Ml Premix) 30 unit in 500 mls @ 2 mls/hr IV TITRATE [facility]; Protocol Ampicillin Sodium 2 gm/ Sodium (Chloride) 100 mls @ 200 mls/hr IV ONETIME ONE Stop: 08/14/21 05:29 Ampicillin Sodium 1 gm/ Sodium (Chloride) 50 mls @ 100 mls/hr IV Q4H [facility] Last Admin: 08/14/21 09:23 Dose: 100 mls/hr Documented by: Sodium Chloride (Normal Saline Advbag) Confirm Administered Dose 100 mls @ as directed .ROUTE .STK-MED ONE Stop: 08/14/21 05:22 Last Admin: 08/14/21 05:32 Dose: 200 mls/hr Documented by: Ketorolac Tromethamine (Ketorolac 30 Mg/Ml Sdv) 30 mg IVPUSH Q6H [facility] Stop: 08/15/21 12:16 Last Admin: 08/15/21 14:45 Dose: 30 mg Documented by: Ketorolac Tromethamine (Ketorolac 30 Mg/Ml Sdv) Confirm Administered Dose 30 mg .ROUTE .STK-MED ONE Stop: 08/15/21 14:42 Last Admin: 08/15/21 14:47 Dose: Not Given Documented by: Lidocaine HCl (Lidocaine 1% 50 Ml Mdv) 50 ml INJECT ONETIME PRN PRN Reason: Laceration repair Methylergonovine Maleate (Methylergonovine 0.2 Mg/1 Ml Amp) 0.2 mg IM ASDIRECTED PRN PRN Reason: Post Hemorrhage Miscellaneous Medication (Phenylephrine Hcl In 0.9% Nacl 1 Mg/10 Ml Syringe) Confirm Administered Dose 1 mg .ROUTE .STK-MED ONE Stop: 08/14/21 09:05 Miscellaneous Medication (Phenylephrine Hcl In 0.9% Nacl 1 Mg/10 Ml Syringe) Confirm Administered Dose 1 mg .ROUTE .STK-MED ONE Stop: 08/14/21 10:50 Misoprostol (Misoprostol 200 Mcg Tab) 200 mcg PO ONETIME PRN PRN Reason: Post Hemorrhage Misoprostol (Misoprostol 25 Mcg (1/4 Of 100 Mcg) Tab) 25 mcg VAG Q4H PRN PRN Reason: Cervical Ripening Morphine Sulfate (Morphine Pf 10 Mg/10 Ml Sdv) Confirm Administered Dose 10 mg .ROUTE .STK-MED ONE Stop: 08/14/21 08:55 Nalbuphine HCl (Nalbuphine 10 Mg/1 Ml Vial) 10 mg IVPUSH Q1H PRN PRN Reason: Pain (severe 7-10) Nalbuphine HCl (Nalbuphine 10 Mg/1 Ml Vial) 5 mg IVPUSH Q30M PRN PRN Reason: Itching Naloxone HCl (Naloxone 0.4 Mg/Ml Sdv) 0.1 mg IVPUSH ASDIRECTED PRN PRN Reason: Respiratory Depression Ondansetron HCl (Ondansetron 4 Mg/2 Ml Sdv) 4 mg IVPUSH Q6H PRN PRN Reason: Nausea/Vomiting Ondansetron HCl (Ondansetron 4 Mg/2 Ml Sdv) Confirm Administered Dose 4 mg .ROUTE .STK-MED ONE Stop: 08/14/21 08:55 Oxytocin (Oxytocin 10 Units/1 Ml Sdv) Confirm Administered Dose 30 unit .ROUTE .STK-MED ONE Stop: 08/14/21 08:55 Ropivacaine (Ropivacaine 0.5% 5 Mg/Ml 30 Ml Sdv) Confirm Administered Dose 30 ml .ROUTE .STK-MED ONE Stop: 08/14/21 08:52 Ropivacaine (Ropivacaine 0.5% 5 Mg/Ml 30 Ml Sdv) Confirm Administered Dose 30 ml .ROUTE .STK-MED ONE Stop: 08/14/21 08:55 Sterile Water (Water For Irrigation,Sterile 1,000 Ml Container) 1,000 ml IRR ASDIRECTED PRN PRN Reason: delivery Terbutaline Sulfate (Terbutaline 1 Mg/Ml Sdv) 0.25 mg SUBCUT ASDIRECTED PRN PRN Reason: Tacysystole - Infant Interaction Infant Disposition, : [place] in Room with Family Feeding: Bottle Fed Support Person: - Recovery Exam Fundal Tone: Firm Fundal Level: 1 Fingerbreadths Below Umbilicus Fundal Placement: Midline Lochia Amount: Scant Lochia Color: Rubra/Red Bladder Status: Voiding Urinary Elimination: Voided - Exam General: Alert, Oriented Neck: Supple Lungs: Normal Respiratory Effort GI/Abdominal Exam: Soft, Non-Tender, No Distention Extremities: Non-Tender, No Pedal Edema Skin: Warm, Dry, Intact Wound/Incisions: Healing Well Neurological: No New Focal Deficit Psy/Mental Status: Alert, Normal Affect, Normal Mood - Problem List & Annotations (1) Delivery by section for breech presentation SNOMED Code(s): 813104098 Code(s): O32.1XX0 - MATERNAL CARE FOR BREECH PRESENTATION, UNSP Status: Acute Current Visit: Yes - Problem List Review Problem List Initiated/Reviewed/Updated: Yes - My Orders Last 24 Hours: My Active Orders 08/16/21 07:20 Ready for Discharge [RC] PER UNIT ROUTINE - Assessment Assessment:: 26yo s/p 1LTCS for breech presentation and rupture of membranes at 37w0d, POD#2 - Plan Plan:: Continue routine care. Encourage ambulation today. Rh positive, GBS negative. Discharge home today. Reviewed discharge instructions/precautions. All questions answered.
[2021-08-16] MEDS: Docusate Sodium 100 MG Cap PO SCH (08:15)
== END 2021-08-16 12:17 | disposition home or self-care (01) | DRG 540 ==
LOC: MW.OBCHECK 04:20 → MW.OB 04:22 → MW.OBCHECK 11:08 → UNDOADMOB 11:09 → MW.OB 11:09 → INTOOBSV 12:07 → OBSVTOIN 12:07 → MW.OB 16:30 → UNDODISIN 08-16 12:17
PROVIDERS: ADMIT Obstetrics & Gynecology; ATTEND Obstetrics & Gynecology
PROC: 10D00Z1 Extraction of Products of Conception, Low, Open Approach (ICD-10-PCS; principal; 2021-08-14)
DX: O32.1XX0 Maternal care for breech presentation, not applicable or unspecified (principal); O99.824 Streptococcus B carrier state complicating childbirth; Z3A.37 37 weeks gestation of pregnancy; Z37.0 Single live birth; Z20.822 Contact with and (suspected) exposure to COVID-19; O36.5930 Maternal care for other known or suspected poor fetal growth, third trimester, not applicable or unspecified
CPT/HCPCS: 01961; 36415; 59025; 64488; 84112; 85014; 85018; 85027; 86592; 86850; 86900; 86901; A9270-GY; J0290; J0690; J1100; J1885; J2270; J2370; J2405; J2590; J2795; J3010; J7120; U0002